=== PATIENT | male | born 1945 | race Caucasian/White ===

== ENCOUNTER → 2017-04-07 10:43 | Outpatient (CLI) | payer MEDICARE, BC, OTHER, SELFPAY ==
--- NOTE | 2017-04-07 10:50 | XR_ITS ---
XR knee RT 2V HISTORY: Knee pain ITS.REASON: Pre op exam ORDERING PHYSICIAN: Sheng Oneil MD PATIENT AGE: 72 years COMPARISON: 11/25/2006 FINDINGS: There are severe osteoarthritic changes of the medial compartment with moderate osteoarthritic changes of the lateral compartment and patellofemoral joint. Osteophytes are present involving all 3 compartments and at the tibial spines and intercondylar region of the distal femur. There is mild right lateral tibial subluxation of 7 mm. There is a small suprapatellar effusion. An oval calcific density is present at the tibial tuberosity consistent with ununited ossification center. IMPRESSION: Moderate to severe osteoarthritic change which has progressed compared to 11/25/2006 with small knee joint effusion
== END ==
PROVIDERS: PCP Internal Medicine; Visit Provider Orthopaedic Surgery
DX: M17.11 Unilateral primary osteoarthritis, right knee (principal)
CPT/HCPCS: 73560

== ENCOUNTER → 2017-04-20 12:35 | Outpatient (CLI) | payer MEDICARE, BC, OTHER, SELFPAY ==
--- NOTE | 2017-04-20 12:39 | XR_ITS ---
XR chest 2V HISTORY: Shortness of breath on exertion ITS.REASON: Preop ORDERING PHYSICIAN: Sheng Oneil MD PATIENT AGE: 72 years COMPARISON: None available FINDINGS: The cardiomediastinal silhouette and pulmonary vascularity are within normal limits. The lungs are clear without infiltrates, suspicious nodules, or pleural effusions. No acute bony abnormalities. Osteophytosis noted of the thoracic spine. There is an oblique lucency along the mid to anterior aspect of what appears to represent the T7 vertebral body. This however does project beyond the endplate and is consistent with a mock line IMPRESSION: No acute finding
--- NOTE | 2017-04-20 12:39 | XR_ITS ---
XR tibia fibula RT 2V CLINICAL INDICATION: Pain, osteoarthritis ORDERING PHYSICIAN: Sheng Oneil MD PATIENT AGE: 72 years COMPARISON: 04/07/2017 FINDINGS: Osteoarthritic changes are once again noted involving the medial compartment and patellofemoral joint with small suprapatellar effusion. Ununited ossification center is present at the tibial tuberosity. The mid and distal aspect of the tibia and fibula have an unremarkable appearance. The ankle has an unremarkable appearance. IMPRESSION: Osteoarthritis of the right knee with knee joint effusion otherwise negative right tibia and fibula.
== END ==
PROVIDERS: PCP Internal Medicine; Visit Provider Orthopaedic Surgery
DX: Z01.818 Encounter for other preprocedural examination (principal)
CPT/HCPCS: 71046; 73590

== ENCOUNTER → 2017-04-23 07:48 | Outpatient (CLI) | payer MEDICARE, BC, OTHER, SELFPAY | PROVIDERS: PCP Orthopaedic Surgery; Visit Provider Orthopaedic Surgery | DX: Z01.812 Encounter for preprocedural laboratory examination (principal); M17.11 Unilateral primary osteoarthritis, right knee | CPT/HCPCS: 36415; 86850 ==

== ENCOUNTER 2017-04-25 05:59 | Inpatient (IN) | payer MEDICARE, BC, OTHER, SELFPAY ==
[2017-04-20 16:28] VITALS: BMI 43.7
[2017-04-25] VITALS (27 sets, daily range): BP systolic 99–176; BP diastolic 46–96; PULSE 71–90; RESP 12–20; TEMP 36.3–43; O2SAT 92–99; BMI 44.8
--- NOTE | 2017-04-25 06:33 | HMH.ANESCL ---
[facility] Anesthesia Checklist - Structural Data Admitted From: Home Planned Operative Procedure/s: total knee Consent for Planned Operative Procedure(s) Verified: Yes Verified Documents: Surgical Consent - Airway Assessment C-Spine Mobility Assessed: Yes TMJ Mobility Assessed: Yes Dentition: Good Dentition - Neurological Assessment Level of Consciousness: Awake, Alert - Anesthesia Plan Anesthesia Risk discussed: Yes Anesthesia Plan: Verified ASA Class: II Anesthesia Type: General [facility] Anesthesia HX I have reviewed the patient's past medical history: Yes Medical History: Reports:: Hypertension Denies:: Cancer, Diabetes Mellitus Type 1, Diabetes Mellitus Type 2, MRSA Other Medical History: Reports: Arthritis Laterality Cases: Bilateral: Other Other Surgeries: Yes: Appendectomy, Hernia Repair Amputation: No Fractures: No *Family Hx:: Cancer, Hypertension
--- NOTE | 2017-04-25 08:51 | PC.NURSE ---
#18F coude inserted r/t pt's age
--- NOTE | 2017-04-25 11:23 | HMH.ANESI ---
[facility] Anesthesia Record Part I Intake, IV Amount: 2,800 Estimated blood loss (mL): 10 Urine output (mL): 750 Blood Pressure: 144/85 SaO2: 92 Pulse Rate: 86 Respiratory Rate: 12 Temperature: 97.6 F Patient is:: Awake, Stable Stable to PACU at:: 11:20
--- NOTE | 2017-04-25 11:24 | P.PN_ITS ---
[facility] Anesthesia Record Part II Discharge Time: 11:50 Destination: floor PACU nurse assessment reviewed?: Yes Patient Condition:: Good Anesthesia Complications:: None
--- NOTE | 2017-04-25 11:50 | XR_ITS ---
XR knee RT 2V COMPARISON: Right knee 04/20/2017 HISTORY: Post total knee surgery TECHNIQUE: Portable AP and crosstable lateral views FINDINGS: The femoral prosthesis is in good alignment and apposition to the tibial plateau prosthesis. The metallic ring is seen along the undersurface of the patella. There is mottled appearance of the soft tissues of the thigh consistent with the recent surgery. IMPRESSION: Satisfactory appearance of postop total knee prosthesis
--- NOTE | 2017-04-25 12:47 | HMH.OPNOTE ---
Date of procedure: 04/25/17 Pre-op Diagnosis:: #1 right knee osteoarthritis, tricompartmental #2 obesity #3 intratendinous ossicle distal patella tendon Post-op Diagnosis:: Same Procedure performed:: Right total knee arthroplasty, cruciate retaining IMPLANTS--Wilson nephew legionnaire system with cruciate retaining size 7 cemented femoral component, size 7 tibial baseplate, cemented, 11 mm thick cruciate retaining polyethylene tibial insert, and 32 mm central peg polyethylene patella button, cemented Surgeon:: Sheng Oneil MD Strategic Consultant(s):: Dr. Tinajero MANAGER MATERIALS MANAGEMENT:: Martin Sherman Anesthesia: GETA, regional Estimated blood loss (mL): 10 Operative findings:: Tricompartmental osteoarthritis was present. Bone quality was satisfactory. Prominent osteophytes present throughout the knee. Intratendinous ossicle present distal patella tendon, knee range of motion limited with pre-existing flexion contracture of approximately 8? Operative note:: The patient was taken to the operating room and an appropriate time out conducted. Preoperative Ancef and tranexamic acid was given. The right knee was placed in a well leg mcintyre after appropriate prepping and draping had been accomplished. We then sealed the operative field with Ioban. A midline incision was made and electrocautery used for hemostasis. A medial parapatellar approach was utilized. A new marking pen was used to osvaldo the extensor mechanism for later closure prior to this parapatellar incision. A portion of the fat pad was resected to allow visualization and the patella gently everted. We control this very strictly due to the presence of a pre-existing ossicle and to avoid a bolusing the tendon from the tubercle. We then used a rongeur to remove osteophytes and electrocautery to remove the ACL and paxton. Femoral entry point on the medial aspect of the notch approximately 1 cm anterior was created and an entry drill placed in the intramedullary canal. We irrigated the canal and then placed the intramedullary delia for alignment. We resected an additional 2 mm of distal femur due to the presence of a pre-existing flexion contracture. We checked the trueness of the cut. We then sized this as a size 7 distal femur. We placed the cutting block after we had checked appropriate external rotation. The jagged been set at 5? valgus 3? external rotation and Whitesides line and epicondylar axis agreed with this. Protected soft tissues with appropriate retractors while we made the anterior posterior and both chamfer cuts. Again we check for appropriate weakness of the cuts and found in satisfactory. We then resected additional meniscal cartilage and turned attention to the tibia. The extra medullary jig was applied between the tibial spines proximally and the alignment delia centered over the distal tibia distally. We ensured that it was directed toward the second ray and also passed through the distal tibia reviewed in the AP fashion. This was confirmed by both the surgeon, the assistant professor of marine biology surgeon, and the project production engineer. We then pinned the cutting guide in position so that would resect approximately 3 mm of bone from the proximal tibia. We confirmed alignment using a drop delia technique after the cutting jig had been pinned and then carefully resected the proximal tibia. We elevated the proximal tibia with an osteotome, grasped it with a Adam clamp, and used electrocautery to remove it while retaining the posterior cruciate ligament. We found the PCL to be in good condition. After the cuts, the collateral ligaments and the popliteus were undamaged. Additional meniscal tissue was resected and we removed osteophytes posteriorly. We check for appropriate trueness of the tibial plateau cut and found it satisfactory. We sized the tibia at a size 7. We placed a size 7 femur slightly lateralized followed by a size 7 tibia with first a 9 and then an 11 mm or insert. We externally rotated the tibia slightl
--- NOTE | 2017-04-25 12:51 | P.OP_ITS ---
Date of procedure: 04/25/17 Pre-op Diagnosis:: #1 right knee osteoarthritis, tricompartmental #2 obesity #3 intratendinous ossicle distal patella tendon Post-op Diagnosis:: Same Procedure performed:: Right total knee arthroplasty, cruciate retaining IMPLANTS--Wilson nephew legionnaire system with cruciate retaining size 7 cemented femoral component, size 7 tibial baseplate, cemented, 11 mm thick cruciate retaining polyethylene tibial insert, and 32 mm central peg polyethylene patella button, cemented Surgeon:: Sheng Oneil MD Crayon Grader(s):: Dr. Tinajero TRAIL MAINTENANCE WORKER:: Martin Sherman Anesthesia: GETA, regional Estimated blood loss (mL): 10 Operative findings:: Tricompartmental osteoarthritis was present. Bone quality was satisfactory. Prominent osteophytes present throughout the knee. Intratendinous ossicle present distal patella tendon, knee range of motion limited with pre-existing flexion contracture of approximately 8? Operative note:: The patient was taken to the operating room and an appropriate time out conducted. Preoperative Ancef and tranexamic acid was given. The right knee was placed in a well leg mcintyre after appropriate prepping and draping had been accomplished. We then sealed the operative field with Ioban. A midline incision was made and electrocautery used for hemostasis. A medial parapatellar approach was utilized. A new marking pen was used to osvaldo the extensor mechanism for later closure prior to this parapatellar incision. A portion of the fat pad was resected to allow visualization and the patella gently everted. We control this very strictly due to the presence of a pre- existing ossicle and to avoid a bolusing the tendon from the tubercle. We then used a rongeur to remove osteophytes and electrocautery to remove the ACL and paxton. Femoral entry point on the medial aspect of the notch approximately 1 cm anterior was created and an entry drill placed in the intramedullary canal. We irrigated the canal and then placed the intramedullary delia for alignment. We resected an additional 2 mm of distal femur due to the presence of a pre- existing flexion contracture. We checked the trueness of the cut. We then sized this as a size 7 distal femur. We placed the cutting block after we had checked appropriate external rotation. The jagged been set at 5? valgus 3? external rotation and Whitesides line and epicondylar axis agreed with this. Protected soft tissues with appropriate retractors while we made the anterior posterior and both chamfer cuts. Again we check for appropriate weakness of the cuts and found in satisfactory. We then resected additional meniscal cartilage and turned attention to the tibia. The extra medullary jig was applied between the tibial spines proximally and the alignment delia centered over the distal tibia distally. We ensured that it was directed toward the second ray and also passed through the distal tibia reviewed in the AP fashion. This was confirmed by both the surgeon, the assistant federal public defender surgeon, and the product steward. We then pinned the cutting guide in position so that would resect approximately 3 mm of bone from the proximal tibia. We confirmed alignment using a drop delia technique after the cutting jig had been pinned and then carefully resected the proximal tibia. We elevated the proximal tibia with an osteotome, grasped it with a Adam clamp, and used electrocautery to remove it while retaining the posterior cruciate ligament. We found the PCL to be in good condition. After the cuts, the collateral ligaments and the popliteus were undamaged. Additional meniscal tissue was resected and we removed osteophytes posteriorly. We check for appropriate truen
--- NOTE | 2017-04-25 12:59 | PC.NURSE ---
1220 - Pt arrived to room 206 via bed accompanied by PACU nurses. Pt is A&Ox4. VSS. Afebrile. Heart rate reg. Lungs CTA and diminished throughout. O2 @ 2LPM via NC intact. Abd soft round and non-tender /c hypoactive Bowel Sounds x4 quads. Polar tessa in place to (R) knee. Heel elevated on pillow. SCD in place to (L) LE. Bilat pedal pulses present and equal bilat. IV (R) hand intact infusing LR @ 25ml/hr /s difficulty. Pt reports pain 5/10 to (R) thigh region stating it feels like a destiney horse . 1238 - Morphine PROPERTY ASSESSMENT MONITOR set up and instructed pt on use of PROPERTY ASSESSMENT MONITOR pump. 1300 - Pt reports pain is not there. Pt has placed cpap on as he reports he is unable to sleep without it. Instructed pt on need to return to oxygen via NC once awake and off cpap. Pt verbalizes understanding. Bed in low position, call conti within reach, PROPERTY ASSESSMENT MONITOR trigger in reach. Will continue to monitor.
--- NOTE | 2017-04-25 13:52 | PC.NURSE ---
1130-Pt eating ice chips w/out difficulty.
--- NOTE | 2017-04-25 13:55 | PC.NURSE ---
1135-Polar pack applied to right knee as ordered per MD. Pt reports pain/discomfort to right knee and back, assisted pt with repositioning as tolerated and medicating for pain per MAR. Pt denies nausea w/ice chips. IPC on and going to LLE. Pt stable.
--- NOTE | 2017-04-25 13:57 | PC.NURSE ---
1122-oral airway removed at this time, o2 @ 3l/nc in place, sats stable
--- NOTE | 2017-04-25 14:01 | PC.NURSE ---
1150-pt attempted to void per urinal, unsucessful
--- NOTE | 2017-04-25 14:04 | PC.NURSE ---
Addendum entered by Ashlee Duncan RN 04/25/17 14:04: 1200-detailed report called to CADEN Anderson Original Note: 1155-radiology at bedside
--- NOTE | 2017-04-25 14:06 | PC.NURSE ---
1205-Pt transported to 2nd floor room 206 via hospital bed w/rails up per. CADEN Franklin & CADEN Sanchez. Pt left in care of CADEN Anderson w/bed locked in lowest position. VSS. Family at bedside. Pt continues to eat ice chips w/out difficulty. Pt stable.
[2017-04-25 18:41] LABS: Microscopic,Cath URINE MICROSCOPIC (MICROSCOPIC)
[2017-04-25 18:43] LABS: Appearance,Urine/Cath CLEAR (Clear); Bilirubin,Cath Negative (Negative); Blood, Urine/Cath Negative (Negative); Color,Urine/Cath YELLOW (Yellow); Glucose,Urine/Cath (UA) Negative (Negative); Ketones,Urine/Cath Negative (Negative); Leukocyte Esterase,Cath Negative (Negative); Nitrate,Cath Negative (Negative); PH,Urine/Cath 6.5 (5.0-8.5); Protein,Urine/Cath Negative (Negative); Urobilinogen,Cath 0.2 EU/dl (0.2)
--- NOTE | 2017-04-25 19:12 | PC.NURSE ---
report given to vicky shah
[2017-04-25 19:18] LABS: WBC,Urine/Cath Occasional #/hpf (0-3)
--- NOTE | 2017-04-25 19:38 | PC.NURSE ---
Morphine RUBBER PRINTING MACHINE OPERATOR pump cleared - 14 mg given. 16mg remain in syringe.
--- NOTE | 2017-04-25 19:47 | PC.NURSE ---
IV intake documented for Morphine DOCK OPERATOR
[2017-04-26] VITALS (10 sets, daily range): BP systolic 127–180; BP diastolic 49–84; PULSE 70–98; RESP 18–20; TEMP 36.1–37.7; O2SAT 93–99
--- NOTE | 2017-04-26 04:26 | PC.NURSE ---
Addendum entered by Helena Bowen RN 04/26/17 05:45: correction: patient has has 15.8mg of morphine, but only rates pain no higher than 5/10. Also has had norco 2 times. Original Note: Patient laying in bed resting at this time. Has rest most of shift. Started having some pain commercial singer when block wore off. Highest pain has been rated is a 4/10. Educated patient on how morphine and norco work. Has had [place] 2 x, morphine pump 2 times. Has been up on side of bed 2 times this shift. Tolerated well. Polar pack is still on right knee, ice and cold water has been replaced. has kept folded blanket under heel. Patient was doing some ROM while in bed. Tolerated well. Oxygen 2L NC has been on all shift to promote wound healing. Lungs are clear, resp even and non labored. have encouraged deep breathing exercises. Right leg has some non pitting edema noted. Iv is patent, Denies needs. Bed locked in low position, side rails up x 2, call light within reach. Will continue to monitor.
--- NOTE | 2017-04-26 07:24 | P.CONPHA_ITS ---
[facility] Pharmacy VTE Monitoring - Patient Demographics Admission date: 04/25/17 Report Date: 04/26/17 Time: 07:24 Allergies/Adverse Reactions: Patient Allergies No Known Allergies Allergy (Verified 04/20/17 14:01) Height: 1.78 m Weight: 146.329 kg - VTE Risk Was VTE Risk Assessment Performed: Yes VTE Score: 5 VTE Risk Level: Low Risk - Prophylaxis VTE Prophylaxis Ordered?: Yes Types of VTE Prophylaxis: IPCS Thigh High Location of Applied Device: Left Leg - VTE Diagnosis Confirmed Treatment or plan recommended: Continue Current Treatment
[2017-04-26 07:46] LABS: Basophils % 0.1 % (0.1-2.0); Eosinophils % 0.1 % (0.1-12.0); Hematocrit 39.9 % (42.0-52.0); Hemoglobin 13.1 g/dL (14.1-18.0); Lymphocytes % 12.9 K/mm3 (10-50); Mean Corpuscular HGB Conc 32.9 g/dL (31.8-35.4); Mean Corpuscular Hemoglobin 30.3 pg (27.0-31.2); Mean Corpuscular Volume 92.1 fl (80-94); Mean Platelet Volume 7.5 fl (7.4-10.4); Monocytes # 1.7 K/mm3 (0.1-1.0); Monocytes % 10.6 % (1.7-9.3); Neutrophils # 12.1 K/mm3 (1.8-7.8); Neutrophils % 76.3 % (37.0-80.0); Platelet Count 250 K/mm3 (142-424); Red Blood Count 4.33 M/mm3 (4.60-6.20); Red Cell Distribution Width 13.2 % (11.5-17.5); White Blood Count 15.8 K/mm3 (4.8-10.8)
[2017-04-26 08:05] LABS: MANUAL DIFFERENTIAL MANUAL DIFFERENTIAL (MANUAL DIFF)
[2017-04-26 08:16] LABS: Anion Gap 12.7 mEq/L (5-15); Blood Urea Nitrogen 18 mg/dL (7-18); Carbon Dioxide 27 mmol/L (21.0-32.0); Chloride 102 mmol/L (98-107); Creatinine Clearance Estimated 69 mL/min (0-300); Creatinine,Serum 1.02 mg/dL (0.70-1.30); Estimated Glomerular Filt Rate 72 ml/min (>60); GFR (African American) 87 ML/MIN (>60); Glucose 124 mg/dL (74-106); Potassium 3.7 mmoL/L (3.5-5.1); Sodium 138 mmol/L (136-145)
[2017-04-26 10:59] LABS: Lymphocytes % 4 % (10-50); Monocytes % 14 % (2-9); Neutrophils % 82 % (42-76); Total Cells Counted 100
[2017-04-26 11:00] LABS: Platelet Estimate Clumped; RBC Morphology Normal
--- NOTE | 2017-04-26 12:59 | SW/DCPLANNER ---
Spoke with patient regarding discharge plans....patient stated that he intends on going home with his . Patient stated that he is very active and feels that he can discharge home with home health once he is ready for discharge. CM will follow patient during his stay and assist with any orders/needs at time of discharge.
--- NOTE | 2017-04-26 13:04 | HMH.ORTHPN ---
Subjective Date: 04/26/17 Time: 09:15 Principal diagnosis: Status post right total knee arthroplasty Interval history: Postop day #1. Patient noted the block to metabolize last night. He is controlled on the MONUMENT LETTERER at this point. Adequate pain control noted. Oral Lortab ordered as well. Dressing clean and dry. Sensate to light touch both feet. No calf tenderness or edema. Negative Homans signs and negative palpable venous cords. No evidence DVT. PN: Obj Ex Vital signs: Temp Pulse Resp BP Pulse Ox 99.9 F H 79 18 127/49 93 L 04/26/17 11:36 04/26/17 11:36 04/26/17 11:36 04/26/17 11:36 04/26/17 11:36 - Urinary Catheter Management Hubbard Cath placed during this visit: yes Urethral indwelling: No Insertion date: 04/25/17 Insertion time: 07:34 Progress Note: A&P Assessment and Plan for All Diagnoses:: ASSESSMENT...... able postop day #1 status post right total knee arthroplasty PLAN...... relation with physical therapy. ASA 325 mg once daily for prophylaxis DVT. I have instructed the patient to move ankles and toes every hour to help with DVT prophylaxis as well. We discussed aspirin versus Lovenox and Coumadin and other oral prophylactic measures. He agrees that aspirin would be the best choice for him. We will attempt to transition to oral pain medications. Will ask care management see the patient.
--- NOTE | 2017-04-26 13:34 | P.PN_ITS ---
Subjective Date: 04/26/17 Time: 09:15 Principal diagnosis: Status post right total knee arthroplasty Interval history: Postop day #1. Patient noted the block to metabolize last night. He is controlled on the MECHANICAL INTEGRITY SPECIALIST at this point. Adequate pain control noted. Oral Lortab ordered as well. Dressing clean and dry. Sensate to light touch both feet. No calf tenderness or edema. Negative Homans signs and negative palpable venous cords. No evidence DVT. PN: Obj Ex Vital signs: Temp Pulse Resp BP Pulse Ox 99.9 F H 79 18 127/49 93 L 04/26/17 11:36 04/26/17 11:36 04/26/17 11:36 04/26/17 11:36 04/26/17 11:36 - Urinary Catheter Management Hubbard Cath placed during this visit: yes Urethral indwelling: No Insertion date: 04/25/17 Insertion time: 07:34 Progress Note: A&P Assessment and Plan for All Diagnoses:: ASSESSMENT...... able postop day #1 status post right total knee arthroplasty PLAN...... relation with physical therapy. ASA 325 mg once daily for prophylaxis DVT. I have instructed the patient to move ankles and toes every hour to help with DVT prophylaxis as well. We discussed aspirin versus Lovenox and Coumadin and other oral prophylactic measures. He agrees that aspirin would be the best choice for him. We will attempt to transition to oral pain medications. Will ask care management see the patient.
--- NOTE | 2017-04-26 15:30 | HMH.PTEV ---
Physical Therapy Evaluation Rehab PT IP Evaluation Start: 04/26/17 15:25 Freq: ONCE Status: Complete Protocol: Document 04/26/17 15:25 PWRA (Rec: 04/26/17 15:30 PWRA [id number]) Subjective/History History History This is the initial PHysical Therapy evaluation for Nik Cortez. Pt is a 72 y/o male admitted to [facility] s/p R TKA. referred to PT for care Subjective Subjective Pt reports soreness in R knee Rehab PT IP Eval Objective Appearance Patient Behavior Appropriate Patient Orientation Person Place Time Name Birthday Patient Baseline Difficulty following instructions none Speech Pattern Clear Ambulation Patient Able to Ambulate Yes Ambulation Observation IP General Gait Pattern Observation Antalgic Gait Ambulation Distance (feet) 75 Ambulation Assistive Device Rolling Walker Balance Ability to Arise Able, uses arms to help Sitting Balance Steady, safe Standing Balance Steady, wide stance Dynamic Sitting Balance Ability Normal Dynamic Standing Balance Ability Good Transfers Bed Transfer Ability Supervision/Stand by Chair Transfer Ability Supervision/Stand by Sit to Stand Bed Transfer Ability Supervision/Stand by Sit to Stand Chair Transfer Ability Supervision/Stand by ROM All Extremities PT ROM Status WFL Abnormal ROM Comment Knee limitations 2ndary to pain and wrap Rehab PT IP prob,goals,plan Problems Date of Evaluation: 04/26/17 PT IP Problems Gait Self care Rehab Potential Rehab Potential Good Equipment Needs Assistive Devices Rolling / Wheeled Walker Plan PT Intervention Plan Transfers Gait Therapeutic Exercise PT Plan Frequency BID Duration LOS Discharge Goals Bed Transfer Ability Supervision/Stand by Sit to Stand Chair Transfer Ability Supervision/Stand by Ambulation Assistive Device Rolling Walker Ambulation Distance (feet) 100 Discharge Plan PT Discharge Plan pt to return home w/ hhpt G -code Required Yes Eval Complexity Eval Charge Codes 14219 - Low Complexity G Codes PT Current Status Mobility PT Current Status Modifier CJ-At least 20% but less than
[2017-04-27] VITALS (15 sets, daily range): BP systolic 115–155; BP diastolic 63–85; PULSE 75–110; RESP 18–22; TEMP 36.4–37.6; O2SAT 91–98; BMI 46.1
--- NOTE | 2017-04-27 05:34 | PC.NURSE ---
Pt required a pain pill for additional relief, only requested one, did not want two. DRIER AND GRINDER TENDER in use, IV fluids infusing well. Right knee dressing remains C/D/I with polar pack in place. Toes with <3 sec and pulses palpable. Using I/S quite often, <100 degree temp tonight. Pt rings appropriately and remained safe this shift.
--- NOTE | 2017-04-27 07:44 | PC.NURSE ---
Shift report given to Malinda Deleon RN leaving pt safe and stable.
--- NOTE | 2017-04-27 12:59 | HMH.ORTHPN ---
Subjective Date: 04/27/17 Time: 11:30 Principal diagnosis: Status post right total knee arthroplasty Interval history: Patient has been up with physical therapy moving approximately 75 feet. He notes minimal pain. He used the METAL SPRAYER PRODUCTION one time last night. Requests removal of IV. Dressing is changed. It is clean and dry absolutely no drainage noted. Minimal edema skin folds present. Suture line intact. Sensate to light touch in the foot. No calf tenderness. No evident complications. PN: Obj Ex Vital signs: Temp Pulse Resp BP Pulse Ox 98.1 F 107 H 20 118/73 93 L 04/27/17 11:44 04/27/17 11:44 04/27/17 11:44 04/27/17 11:44 04/27/17 11:44 - Urinary Catheter Management Hubbard Cath placed during this visit: yes Urethral indwelling: No Insertion date: 04/25/17 Insertion time: 07:34 Progress Note: A&P Assessment and Plan for All Diagnoses:: Anticipate discharge tomorrow. We have reemphasized extension and have very important it is as the patient had a pre-existing flexion contracture. Although his range of motion on the OR table is 0 to approximately 120?, I have reemphasized how very difficult it is for patients to maintain this range of motion. Patient understands and is willing to put forth the effort to regain his motion. Care management is seen the patient will offer recommendations for home therapy
--- NOTE | 2017-04-27 13:03 | P.PN_ITS ---
Subjective Date: 04/27/17 Time: 11:30 Principal diagnosis: Status post right total knee arthroplasty Interval history: Patient has been up with physical therapy moving approximately 75 feet. He notes minimal pain. He used the NON DESTRUCTIVE EVALUATION SPECIALIST one time last night. Requests removal of IV. Dressing is changed. It is clean and dry absolutely no drainage noted. Minimal edema skin folds present. Suture line intact. Sensate to light touch in the foot. No calf tenderness. No evident complications. PN: Obj Ex Vital signs: Temp Pulse Resp BP Pulse Ox 98.1 F 107 H 20 118/73 93 L 04/27/17 11:44 04/27/17 11:44 04/27/17 11:44 04/27/17 11:44 04/27/17 11:44 - Urinary Catheter Management Hubbard Cath placed during this visit: yes Urethral indwelling: No Insertion date: 04/25/17 Insertion time: 07:34 Progress Note: A&P Assessment and Plan for All Diagnoses:: Anticipate discharge tomorrow. We have reemphasized extension and have very important it is as the patient had a pre-existing flexion contracture. Although his range of motion on the OR table is 0 to approximately 120?, I have reemphasized how very difficult it is for patients to maintain this range of motion. Patient understands and is willing to put forth the effort to regain his motion. Care management is seen the patient will offer recommendations for home therapy
--- NOTE | 2017-04-27 13:45 | SW/DCPLANNER ---
Followed up with patient this afternoon regarding discharge plans. Patient has stated that MD has mentioned discharge tomorrow. Patient does NOT have a preference on a home health agency for when he is ready for discharge. I will set patient up with home health once discharge date is known and I have informed patient that home health will not visit patient day of discharge but they will visit day after discharge. Patient and agree with plan. I will follow up with patient in the AM.
--- NOTE | 2017-04-27 13:55 | SUR.OPER ---
Hubbard catheter removed just after last sterile dressing applied, at 11:14. CADEN Cedeno
--- NOTE | 2017-04-27 18:20 | PC.NURSE ---
72 YEAR OLD MALE PRESENTED TO THE HOSPITAL ON 04/25/17 FOR A RIGHT TOTAL KNEE REPLACEMENT. HE HAS DONE WELL TODAY AND HAS AMBULATED WITH PHYSICAL THERAPY, HE TOLERATED THIS VERY WELL AND HAS SAT UP IN THE CHAIR MOST OF THE DAY. HE HAS HAD FAMILY AT BEDSIDE. HE COMPLAINED OF PAIN X 2 AND WAS MEDICATED PER ORDER. HE NOW HAS A SALINE LOCK AND FLUIDS AND SUPERVISOR METAL FURNITURE FABRICATION PUMP HAS BEEN HELD PER DR AMBROCIO AT THIS TIME. HE CONTINUES TO USE THE POLAR PACK TO HIS RIGHT KNEE AND HAS A MODERATE AMOUNT OF SWELLING. HE HAS POSITIVE PULSES TO BILATERAL LOWER EXTREMITIES. DRESSING IS CLEAN DRY AND INTACT TO HIS RIGHT KNEE. HE PLANS TO DISCHARGE HOME TOMORROW WITH HOME HEALTH TO CONTINUE HIS THERAPY. HE HAS USED HIS INCENTIVE SPIROMETER HOURLY. WILL WE CONTINUE TO MONITOR. CARY ACUÑA, MSN, RN
--- NOTE | 2017-04-27 19:19 | PC.NURSE ---
report given to tanvir
--- NOTE | 2017-04-28 03:42 | PC.NURSE ---
He is a&Ox3. Lung sounds CTA. Using incentive spirometer as instruction. He reported that he has not had a BM since Tuesday but stated his appetite is starting to increased and that he is passing gas. 1+ Edema RLE. Receiving PO pain medications. RLE dressing intact. Polar pack in place.
[2017-04-28 04:00] VITALS: BP 133/80; PULSE 86; RESP 20; TEMP 36.7; O2SAT 97
--- NOTE | 2017-04-28 07:32 | PC.NURSE ---
REPORT GIVEN TO Shay JEONG W/C
[2017-04-28 08:00] VITALS: BP 142/70; PULSE 89; RESP 18; TEMP 37.2; O2SAT 98
--- NOTE | 2017-04-28 11:51 | HMH.DCSUM ---
General - General Admission date: 04/25/17 Discharge date: 04/28/17 HPI HPI: 72-year-old gentleman with right knee end-stage osteoarthritis admitted for right total knee arthroplasty. He underwent a cruciate retaining right knee arthroplasty using [facility]. Cemented femur cemented tibial baseplate and high flexion tibial insert millimeters central peg constrained patella button. Femur is a size 7 cruciate retaining, tibial baseplate size 7, polyethylene for the baseplate is 11 mm thick Hospital Course Hospital Course: Patient underwent an uneventful postoperative course. He was initially treated using a morphine CUBE MACHINE TENDER and progressed to oral pain medicines by time of discharge. He was able to ambulate with assistance of a walker. Physical therapy saw him there for times and also prior to discharge. We have emphasized elevation and LUKASZ hose [patient issued LUKASZ hose by Jerrica prior to discharge and shown how to don and doff the LUKASZ hose.] Should progress to regular diet without difficulty or problems. At time of discharge, the wound was clean and dry with absolutely no drainage redness erythema or induration. Mild edema of the right lower extremity but no Homans negative calf tenderness venous cords not palpable. Objective Vital signs: Temp Pulse Resp BP Pulse Ox 98.9 F 89 18 142/70 98 04/28/17 08:00 04/28/17 08:00 04/28/17 08:00 04/28/17 08:00 04/28/17 08:00 Discharge Plan - Patient Discharge Instructions Additional Instructions: Please continue to take your usual home medications except for your 81 mg of aspirin. STOP TAKING 81 MG OF ASPIRIN.. Instead, begin taking aspirin 325 mg 1 tablet daily beginning Tuesday, 29 April 2017. Continue to take the 305 mg dose of aspirin for 14 days. After you have taken all 14 tablets, you may resume taking your 81 mg of aspirin daily You may use the Lortab 5/325 as directed for pain. Patient Instructions: Knee Replacement - Follow up Plan Home Medications: Home Medications Medication Instructions Recorded Confirmed Type aspirin 81 mg tablet,delayed 81 mg PO DAILY 03/10/17 04/26/17 History release ibuprofen 200 mg capsule 400 mg PO Q4-6H PRN 03/10/17 04/25/17 History gabapentin 300 mg capsule 300 mg PO TID 04/07/17 04/25/17 History lisinopril 10 mg tablet 10 mg PO BID tab 04/07/17 04/25/17 History Prescriptions/Medication Reconciliation: New Aspirin/Calcium Carbonate/Mag [Aspirin Buffered 325 mg Tab] 325 mg PO DAILY #14 tab No Action ibuprofen 200 mg capsule 400 mg PO Q4-6H PRN PRN Reason: PAIN gabapentin 300 mg capsule 300 mg PO TID aspirin 81 mg tablet,delayed release 81 mg PO DAILY lisinopril 10 mg tablet 10 mg PO BID tab
--- NOTE | 2017-04-28 11:57 | P.DS_ITS ---
General - General Admission date: 04/25/17 Discharge date: 04/28/17 HPI HPI: 72-year-old gentleman with right knee end-stage osteoarthritis admitted for right total knee arthroplasty. He underwent a cruciate retaining right knee arthroplasty using [facility]. Cemented femur cemented tibial baseplate and high flexion tibial insert millimeters central peg constrained patella button. Femur is a size 7 cruciate retaining, tibial baseplate size 7, polyethylene for the baseplate is 11 mm thick Hospital Course Hospital Course: Patient underwent an uneventful postoperative course. He was initially treated using a morphine RETURN CHECKER and progressed to oral pain medicines by time of discharge. He was able to ambulate with assistance of a walker. Physical therapy saw him there for times and also prior to discharge. We have emphasized elevation and LUKASZ hose [patient issued LUKASZ hose by Jerrica prior to discharge and shown how to don and doff the LUKASZ hose.] Should progress to regular diet without difficulty or problems. At time of discharge, the wound was clean and dry with absolutely no drainage redness erythema or induration. Mild edema of the right lower extremity but no Homans negative calf tenderness venous cords not palpable. Objective Vital signs: Temp Pulse Resp BP Pulse Ox 98.9 F 89 18 142/70 98 04/28/17 08:00 04/28/17 08:00 04/28/17 08:00 04/28/17 08:00 04/28/17 08:00 Discharge Plan - Patient Discharge Instructions Additional Instructions: Please continue to take your usual home medications except for your 81 mg of aspirin. STOP TAKING 81 MG OF ASPIRIN.. Instead, begin taking aspirin 325 mg 1 tablet daily beginning Tuesday, 29 April 2017. Continue to take the 305 mg dose of aspirin for 14 days. After you have taken all 14 tablets, you may resume taking your 81 mg of aspirin daily You may use the Lortab 5/325 as directed for pain. Patient Instructions: Knee Replacement - Follow up Plan Home Medications: Home Medications Medication Instructions Recorded Confirmed Type aspirin 81 mg tablet,delayed 81 mg PO DAILY 03/10/17 04/26/17 History release ibuprofen 200 mg capsule 400 mg PO Q4-6H PRN 03/10/17 04/25/17 History gabapentin 300 mg capsule 300 mg PO TID 04/07/17 04/25/17 History lisinopril 10 mg tablet 10 mg PO BID tab 04/07/17 04/25/17 History Prescriptions/Medication Reconciliation: New Aspirin/Calcium Carbonate/Mag [Aspirin Buffered 325 mg Tab] 325 mg PO DAILY # 14 tab No Action ibuprofen 200 mg capsule 400 mg PO Q4-6H PRN PRN Reason: PAIN gabapentin 300 mg capsule 300 mg PO TID aspirin 81 mg tablet,delayed release 81 mg PO DAILY lisinopril 10 mg tablet 10 mg PO BID tab
--- NOTE | 2017-04-28 13:52 | SW/DCPLANNER ---
RECEIVED REFERRAL FOR THIS PATIENT FOR PT SERVICES WITH HOME HEALTH.....PATIENT HAD A KNEE REPLACEMENT AND DISCHARGED TO HOME TODAY...I SENT REFERRAL TO [facility] [place] THAT [facility].. I HAVE ASKED [facility] TO CONTACT PATIENT FOR SERVICES TO START IN THE AM...
--- NOTE | 2017-04-28 15:01 | PC.NURSE ---
1300 PATIENT EDUCATION GIVEN TO THIS PATIENT AND HIS . WRITTEN ON HIS INSTRUCTION SHEET STOP TAKING 81 MG ASPIRIN BEGIN TAKING 325MG ASPIRIN 1 TABLET DAILY BEGINNING Tuesday04/29/17, FOR APPROXIMATELY 14 DAYS, AFTER 14 DAYS BEGIN TAKING ASPIRIN 81MG DAILY. PATIENT WAS EDUCATED ON THIS AND HE AND HIS VERBALIZED UNDERSTANDING. CARY ACUÑA, MSN, RN
== END 2017-04-28 13:30 | disposition home health service (06) | DRG 470 ==
PROVIDERS: Admitting Provider Orthopaedic Surgery; Family Provider Family Medicine; PCP Orthopaedic Surgery; Visit Provider Orthopaedic Surgery
PROC: 0SRC0J9 Replacement of Right Knee Joint with Synthetic Substitute, Cemented, Open Approach (ICD-10-PCS; CPT 27447; principal; 2017-04-25 07:30)
DX: M17.11 Unilateral primary osteoarthritis, right knee (principal); I10 Essential (primary) hypertension
CPT/HCPCS: 27447; 36415; 73560; 80048; 81001; 85007; 85025; 86850; 94761; 96374; 97110; 97116; 97161; C1765; C1776; J0330; J2405

== ENCOUNTER → 2017-05-03 09:27 | Outpatient (CLI) | payer MEDICARE, BC, OTHER, SELFPAY ==
--- NOTE | 2017-05-03 09:31 | NVE_ITS ---
Venous Exam IMPRESSIONS 1. There is no evidence of significant Reflux. 2. No evidence of deep or superficial vein thrombosis involving the right lower extremity 3. Interstitial edema noted in right lower extremity. History: Right lower extremity pain. Swelling of the right lower extremity. Risk factors: Obese. Labs, prior tests, procedures, and surgery: Right knee joint prosthesis (25-Apr-2017). Labs, prior tests, procedures, and surgery: Right knee joint prosthesis (25-Apr-2017). Right lower extremity venous duplex evaluation. Doppler flow study including spectral analysis, color and lechuga scale imaging. Location: Vascular laboratory. Patient status: Outpatient. Tables: Venous flow and imaging: + + + + Location Overall Flow properties + + + + Right common femoral Patent Normal phasicity; spontaneous; normal augmentation; compressible + + + + Right saphenofemoral Patent Compressible junction + + + + Right profunda femoral Patent Compressible + + + + Right femoral Patent Normal phasicity; spontaneous; normal augmentation; compressible + + + + Right greater saphenous Patent Normal phasicity; spontaneous; normal augmentation; compressible + + + + Right popliteal Patent Normal phasicity; spontaneous; normal augmentation; compressible + + + + Right posterior tibial Patent Compressible + + + + Right peroneal Difficult study + + + + Right gastrocnemius Patent Compressible + + + + Right soleal Patent Compressible + + + + (Report amended ) Electronically signed by: Umberto Dixon [id number]
== END ==
PROVIDERS: PCP Internal Medicine; Visit Provider Orthopaedic Surgery
DX: M79.604 Pain in right leg (principal)
CPT/HCPCS: 93971

== ENCOUNTER 2017-06-16 14:00 | Outpatient (RCR) | payer MEDICARE, BC, OTHER, SELFPAY ==
--- NOTE | 2017-05-04 11:22 | HMH.PTOPWND ---
Rehab Outpt Wound Evaluation Rehab OP Wound Evaluation Start: 05/04/17 11:15 Freq: Status: Active Protocol: Document 05/04/17 11:16 SUE (Rec: 05/04/17 11:20 PHORNE [id number]) Electronically Signed By Jeff Luna, PT 05/04/17 11:16 Subjective/History History History Pt presents ~ 10 days S/P right TKA with significant edema more than expected. He reports expected levels of aching pain in the right LE and no numbness or tingling. He had US performed which showed no DVT. He also presents with a small blister at lateral, superior right knee incision. He reports past hx of edema with other medical procedures, especially his lumbar spine surgery. Lymphedema Eval Classification of Lymphedema Secondary Lymphedema Yes Post-Surgical Lymphedema Yes Stemmer's sign Stemmer's Sign yes Stage of Lymphedema Lymphedema stages Stage I (Pitting edema, reduces w/ elevation, no fibrosis) Pain Scale Pain Scale (0-10) 5 Lower Extremity Measurements Right MTP Measurement (cm) 28.8 Heel Measurement (cm) 36.3 10 cm Proximal to Lateral Malleoli 27.8 Measurement (cm) 20 cm Proximal to Lateral Malleoli 35.4 Measurement (cm) 30 cm Proximal to Lateral Malleoli 42.4 Measurement (cm) 40 cm Proximal to Lateral Malleoli 42.6 Measurement (cm) 50 cm Proximal to Lateral Malleoli 50.9 Measurement (cm) 60 cm Proximal to Lateral Malleoli 59.0 Measurement (cm) Manual Lymphatic Drainage Treatment Area MLD Treatment Area Abdomen Right Lower Extremity Wound Problems/Impairments Impairments Problems/Impairmments Palpation Tenderness Impaired Range of Motion Impaired Strength Impaired Gait Pattern Impaired Walking Increased Edema Lymphedema Present Wound Care Needs Subjective C/O Pain Impaired Self Care/Self Management Prognosis Rehab Potential Good Clinical Impression Consistent with Diagnosis
== END 2017-06-16 14:01 | disposition home or self-care (01) ==
LOC: PT 14:00
PROVIDERS: Family Provider Family Medicine; PCP Internal Medicine; Visit Provider Orthopaedic Surgery
DX: Z96.651 Presence of right artificial knee joint (principal); M25.561 Pain in right knee
CPT/HCPCS: 97014; 97016; 97110; 97140; 97162; 97760; G0283

== ENCOUNTER → 2017-06-30 07:55 | Outpatient (CLI) | payer MEDICARE, BC, OTHER, SELFPAY ==
--- NOTE | 2017-06-30 07:59 | XR_ITS ---
XR knee RT 2V HISTORY: Follow-up of the replacement ITS.REASON: RT TKA 10 WK POST OP ORDERING PHYSICIAN: Sheng Oneil MD PATIENT AGE: 72 years COMPARISON: 04/25/2017 FINDINGS: Good alignment status post total knee arthroplasty. No evidence of orthopedic consultation. IMPRESSION: Status post total knee arthroplasty with good alignment
== END ==
PROVIDERS: Visit Provider Orthopaedic Surgery
DX: Z96.651 Presence of right artificial knee joint (principal)
CPT/HCPCS: 73560

== ENCOUNTER → 2018-11-24 08:20 | Outpatient (CLI) | payer MEDICARE, BC, OTHER, SELFPAY ==
--- NOTE | 2018-11-24 08:31 | XR_ITS ---
PROCEDURE: XR KNEE RT 4V CLINICAL INDICATION: FU right knee TKA COMPARISON: KNEELMRT XR knee RT 2V from 04/25/2017 FINDINGS: The femoral prosthesis is in good alignment and apposition to the tibial plateau prosthesis. There is no evidence of loosening of either prosthesis. Postsurgical changes seen along the undersurface of the patella as noted previously. There is no effusion and no other abnormalities noted. IMPRESSION: Satisfactory appearance of total knee prosthesis Dictated by: Dr. Pierre Frazier MD 11/24/2018 09:[address] Pierre Frazier MD in [place] 11/24/2018 09:16
== END ==
PROVIDERS: PCP Internal Medicine; Visit Provider Orthopaedic Surgery
DX: Z09 Encounter for follow-up examination after completed treatment for conditions other than malignant neoplasm (principal); Z96.651 Presence of right artificial knee joint; M25.561 Pain in right knee
CPT/HCPCS: 73564

== ENCOUNTER 2021-12-15 12:00 | Emergency (ER) | payer MEDICARE, OTHER, SELFPAY ==
[2021-12-15 12:01] VITALS: BP 131/61; PULSE 62; RESP 18; TEMP 36.6; O2SAT 99; BMI 40.1
--- NOTE | 2021-12-15 12:04 | HMH.EDUROGM ---
Discharge Plan Disposition Patient Disposition: Home, Self-Care Condition: Good Prescriptions Prescriptions: New oxycodone-acetaminophen [Percocet] 7.5-325 mg tablet 1 tab PO Q6H PRN (Reason: pain) Qty: 14 0RF No Action lisinopril 10 mg tablet 10 mg PO BID gabapentin 300 mg capsule 300 mg PO TID ibuprofen 200 mg capsule 400 mg PO Q4-6H PRN (Reason: PAIN) aspirin [Adult Low Dose Aspirin] 81 mg tablet,delayed release (DR/EC) 81 mg PO DAILY aspirin,buffd-calcium carb-mag 325 MG tablet 325 mg PO DAILY Qty: 14 0RF Referrals Follow up/Referrals: Provider,Referral, MD [Primary Care Provider] - See instructions Activity Restrictions/Add. Instructions Additional Instructions/Restrictions: [facility], return for worse Clinical Impressions Clinical Impression: Intermittent torsion of testicle Instructions Patient Instructions: Testicular Torsion Discharge ED Provider: Mark Bardales Male Urogenital HPI General Chief complaint: Urogenital-Male Stated complaint: Physican referral, LT side testical pain Time Seen by Provider: 12/15/21 12:04 History of Present Illness HPI Narrative: left testicle pain, several weeks, seen by pcp/ER for same Rx abx , today no better Onset (ago): week(s) Duration: constant and intermittent Location: left testicle Severity: moderate Quality: aching Relieving factors: none Exacerbating factors: none Reports denies other symptoms Related Data Home Medications Medication Instructions Recorded Confirmed aspirin 81 mg tablet,delayed 81 mg PO DAILY HEART HEALTH 03/10/17 11/24/18 release (Adult Low Dose Aspirin) ibuprofen 200 mg capsule 400 mg PO Q4-6H PRN PAIN 03/10/17 11/24/18 gabapentin 300 mg capsule 300 mg PO TID Pain 04/07/17 11/24/18 lisinopril 10 mg tablet 10 mg PO BID Hypertension 04/07/17 11/24/18 Previous Rx's Medication Instructions Recorded aspirin,buffered (calcium 325 mg PO DAILY #14 tabs 04/28/17 carbonate-magnesium) 325 mg tablet oxycodone-acetaminophen 7.5 mg-325 1 tab PO Q6H PRN pain #14 tabs 12/15/21 mg tablet (Percocet) Allergies Allergy/AdvReac Type Severity Reaction Status Date / Time No Known Allergies Allergy Verified 11/24/18 09:41 [facility] Social History Smoking Status: Former smoker second hand exposure: No alcohol intake: former current occupational status: retired Travel in the last 8 weeks: None household members: spouse housing: house current occupational exposures/hazards: No caffeine: Yes ROS Obtained: Yes All systems reviewed & no additional complaints except as documented Physical Exam General General appearance: alert and in no apparent distress Respiratory Respiratory exam: Absent respiratory distress, wheezes or stridor Cardiovascular Cardiovascular exam: Present regular rate and normal rhythm; Absent bradycardia Abdominal Exam Abdominal exam: Present soft; Absent distention, tenderness or guarding exam: Present other (ttp left testicle, no red/swell/mass, otherwise nml gu exam) Neurological Exam Neurological exam: Present alert, oriented X3 and CN II-XII intact Skin Skin exam: Present warm, intact and normal color Medical Decision Making Iván Inquiry Pt receiving controlled substance: Yes Iván was queried for this patient: Yes Risks and benefits of using a controlled substance: were discussed with pt by me Vital Signs: 12/15/21 12:01 12/15/21 14:45 Temperature 97.9 F 98.0 F Temperature Source Oral Oral Pulse Rate 60 Pulse Rate [Radial] 62 Respiratory Rate 18 18 Blood Pressure 129/81 Blood Pressure [Right Arm] 131/61 Blood Pressure Mean [Right Arm] 84 Blood Pressure Source Automatic Cuff Blood Pressure Source [Right Arm] Automatic Cuff Blood Pressure Position Sitting Blood Pressure Position [Right Arm] Sitting 02 Sat by Pulse Oximetry 99 Oxygen Deli
--- NOTE | 2021-12-15 12:06 | PC.NURSE ---
ED MD AT BEDSIDE FOR EVALUATION
--- NOTE | 2021-12-15 12:11 | US_ITS ---
FINAL REPORT CLINICAL HISTORY: left testicular pain several weeks FINDINGS: Technique: Ultrasound images of the testicles were obtained. Findings: The right testicle is unremarkable with normal flow. The left testicle is asymmetrically small and has a more lentiform configuration. There is minimal to absent blood flow. There are multi lobular fluid collection surrounding the left testicle. IMPRESSION: Small left testicle with diminished blood flow and surrounding multi lobular fluid collections. Unsure if this is sequela of prior infarct, infection, or trauma. Correlate with medical history. Recommend urologic consultation. Reviewed, Interpreted and Dictated by Kaushal Horton MD Transcribed by Domenico Metzger Authenticated and [facility]
--- NOTE | 2021-12-15 12:27 | PC.NURSE ---
RADIOLOGY NOTIFIED OF U/S
--- NOTE | 2021-12-15 12:37 | PC.NURSE ---
pt to US
--- NOTE | 2021-12-15 12:38 | PC.NURSE ---
PT TO U/S AT THIS TIME PER WC
--- NOTE | 2021-12-15 13:08 | PC.NURSE ---
LEYLA MARTINES DISCUSSING US RESULTS WITH DR. BROWN
--- NOTE | 2021-12-15 13:20 | PC.NURSE ---
ED MD AT BEDSIDE TO DISCUSS POC
[2021-12-15 13:28] LABS: Coronavirus 19, PCR Not Detected (NotDetected); Influenza A, PCR Not Detected (NotDetected); Influenza B, PCR Not Detected (NotDetected)
--- NOTE | 2021-12-15 13:37 | PC.NURSE ---
placed call to [place] for transfer, they are to check bed availability and call back, also advised they may have to send pt to for surgical intervention.
--- NOTE | 2021-12-15 13:48 | PC.NURSE ---
PT TO BR TO PROVIDE URINE
--- NOTE | 2021-12-15 13:56 | PC.NURSE ---
PT MEDICATED PER EMAR, AT BEDSIDE. NO NEEDS VOICED
[2021-12-15 13:58] LABS: Microscopic, Urine URINE MICROSCOPIC (MICROSCOPIC)
[2021-12-15 14:13] LABS: Appearance,Urine CLEAR (Clear); Bilirubin,Urine Negative (Negative); Blood, Urine Negative (Negative); Color,Urine YELLOW (Yellow); Glucose,Urine (UA) Negative (Negative); Ketones,Urine Negative (Negative); Leukocyte Esterase,Urine Negative (Negative); Nitrate,Urine Negative (Negative); Protein,Urine Negative (Negative); Specific Gravity, Urine 1.015 (1.005-1.030); Urobilinogen,Urine 0.2 EU/dl (0.2)
[2021-12-15 14:26] LABS: WBC,Urine Occasional #/hpf (0-3)
--- NOTE | 2021-12-15 14:26 | PC.NURSE ---
[facility] SPEAKING WITH [facility]
--- NOTE | 2021-12-15 14:29 | PC.NURSE ---
Dr Bardales speaking with [facility].
--- NOTE | 2021-12-15 14:31 | PC.NURSE ---
DR. BROWN SPEAKING WITH PT AND ABOUT POC
[2021-12-15 14:45] VITALS: BP 129/81; PULSE 60; RESP 18; TEMP 36.7; O2SAT 99
== END 2021-12-15 14:45 | disposition home or self-care (01) ==
PROVIDERS: Emergency Provider Emergency Medicine
DX: N50.812 Left testicular pain (principal); Z20.822 Contact with and (suspected) exposure to COVID-19; Z79.1 Long term (current) use of non-steroidal anti-inflammatories (NSAID); Z79.82 Long term (current) use of aspirin; Z79.899 Other long term (current) drug therapy; Z87.891 Personal history of nicotine dependence
CPT/HCPCS: 76870; 81001; 99284; C9803; U0003; U0005

== ENCOUNTER 2023-05-10 08:53 | Outpatient (CLI) | payer MEDICARE, SELFPAY ==
--- NOTE | 2023-05-10 08:58 | CT_ITS ---
FINAL REPORT CLINICAL HISTORY: LT HIP PAIN FINDINGS: Axial CT images of the left hip were obtained without contrast. Sagittal and coronal reformatted images were also obtained. 3D reformatted images were also obtained and reviewed. There is no evidence of fracture or dislocation. Severe degenerative changes are noted of the left hip. There are multiple subchondral cysts in the superior femoral head and superior acetabulum. Note is made of moderate degenerative change of the left SI joint. A sclerotic focus is seen in the medial left iliac bone with a nonspecific appearance. The musculature is intact. Note is made of multiple borderline sized left inguinal nodes which are nonspecific but favor reactive. 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 Sclerotic focus in the medial left iliac bone with a nonspecific appearance but favor benign. If indicated follow-up CT in 6 months or bone scan may be helpful. Authenticated and [facility]
== END 2023-05-10 23:59 ==
LOC: RAD 08:53
PROVIDERS: PCP Family Medicine; Visit Provider Nurse Practitioner
DX: M25.552 Pain in left hip (principal)
CPT/HCPCS: 73700

== ENCOUNTER 2023-06-17 08:39 | Outpatient (CLI) | payer MEDICARE, SELFPAY ==
--- NOTE | 2023-06-17 08:51 | XR_ITS ---
FINAL REPORT CLINICAL HISTORY: ARTHRITIS OF HIP,LT HIP PAIN,LYMPHADENITIS COMPARISON: None FINDINGS: Using L1-4, the bone mineral density of the spine is 1.382 g/cm2, corresponding to T-score of 2.6 which is within normal limits. Using the left hip, the bone mineral density of the femoral neck is 0.995 g/cm2, corresponding to a T-score of 0.5 which is within normal limits. Using the right hip, the bone mineral density of the femoral neck is 0.897 g/cm2, corresponding to a T-score of -0.2 which is within normal limits. NOTE: T-score: Standard deviation compared with peak bone mass of young adult mean. *Following the recommendations of the International Society of Bone densitometry, classification of hip BMD is based on the lower of two T-scores; total hip or femoral neck. IMPRESSION: Normal bone mineral density of the lumbar spine and hips. Reviewed, Interpreted and Dictated by Kenneth Hernadez III, MD Transcribed by Mikaela Cantu Authenticated and [facility]
== END 2023-06-17 23:59 | disposition home or self-care (01) ==
LOC: RAD 08:41
PROVIDERS: PCP Family Medicine; Visit Provider Nurse Practitioner
DX: M16.12 Unilateral primary osteoarthritis, left hip (principal); M25.552 Pain in left hip; L04.9 Acute lymphadenitis, unspecified; Z13.820 Encounter for screening for osteoporosis; M85.88 Other specified disorders of bone density and structure, other site
CPT/HCPCS: 77080

== ENCOUNTER 2024-03-05 10:18 | Emergency (ER) | payer MEDICARE, SELFPAY ==
[2024-03-05] VITALS (8 sets, daily range): BP systolic 106–122; BP diastolic 46–67; PULSE 60–61; RESP 10–22; TEMP 36.6; O2SAT 95–99; BMI 35.9
--- NOTE | 2024-03-05 11:15 | ECG_ITS ---
APPROVED REPORT Exam: Resting ECG HR:60 bpm ECG Measurements Heart Rate 60 AXES AL 72 P 138 QRSd 124 QRS -20 QT 410 T 142 QTc 410 Conclusion ELECTRONIC VENTRICULAR PACEMAKER ABNORMAL RHYTHM ECG Electronically signed by : PAULA BRASWELL, 03/05/2024 17:09:19
[2024-03-05 11:16] LABS: Basophils # 0.1 K/mm3 (0-0.2); Basophils % 0.3 % (0.1-2.0); Eosinophils # 0.1 K/mm3 (0.0-0.4); Eosinophils % 0.3 % (0.1-12.0); Hematocrit 42.2 % (42.0-52.0); Lymphocytes # 1.4 K/mm3 (0.7-4.5); Lymphocytes % 7.7 % (10-50); Mean Corpuscular HGB Conc 33.2 g/dL (31.8-35.4); Mean Corpuscular Hemoglobin 29.3 pg (27.0-31.2); Mean Corpuscular Volume 88.3 fl (80-94); Mean Platelet Volume 9.8 fl (7.4-10.4); Monocytes # 2.5 K/mm3 (0.1-1.0); Monocytes % 13.2 % (1.7-9.3); Neutrophils # 14.4 K/mm3 (1.8-7.8); Neutrophils % 77.8 % (37.0-80.0); Platelet Count 330 K/mm3 (142-424); Red Blood Count 4.78 M/mm3 (4.60-6.20); Red Cell Distribution Width 13.3 % (11.5-17.5); White Blood Count 18.6 K/mm3 (4.8-10.8)
--- NOTE | 2024-03-05 11:24 | CT_ITS ---
FINAL REPORT TECHNIQUE: After the administration of intravenous contrast, axial images were obtained through the abdomen and pelvis by computed tomography. This study was performed with technique to keep radiation doses as low as reasonably achievable, (ALARA). Individualized dose reduction techniques using automated exposure control or adjustment of the MA and/or KV according to the patient's size were employed. CLINICAL HISTORY: abd pain/n/v FINDINGS: Abdomen: The lung bases are clear. There is a benign-appearing cyst in the lateral left hepatic lobe measuring 16 mm. Gallbladder is distended. The spleen is unremarkable. There is a left adrenal nodule measuring 17 mm. Right adrenal gland is unremarkable. The pancreas is unremarkable. Benign-appearing left renal cysts are seen measuring up to 3.2 cm. The aorta is normal in caliber. There is no free fluid or adenopathy. There is abnormal mucosal thickening within the ascending colon and hepatic flexure as well as mucosal thickening in the sigmoid colon extending to the rectum favored represent acute, inflammatory or infectious colitis. Pelvis: The left hip prosthesis is present. The appendix is not identified. The urinary bladder is unremarkable. There is no free fluid or adenopathy. IMPRESSION: Acute infectious/inflammatory colitis as above. Reviewed, Interpreted and Dictated by Kaushal Horton MD Transcribed by Bertha Barrera Authenticated and [facility]
[2024-03-05] MEDS: ONDANSETRON 4MG/2ML VIAL 4 MG IV (11:26)
[2024-03-05 11:31] LABS: Coronavirus 19, PCR Not Detected (NotDetected); Influenza A, PCR Not Detected (NotDetected); Influenza B, PCR Not Detected (NotDetected)
[2024-03-05 11:35] LABS: MANUAL DIFFERENTIAL MANUAL DIFFERENTIAL (MANUAL DIFF)
--- NOTE | 2024-03-05 11:43 | ED_ITS ---
Discharge Plan Disposition Patient Disposition: Home, Self-Care Condition: Good Prescriptions Prescriptions: New vancomycin 125 mg capsule 125 mg PO Q6H 10 Days Qty: 40 0RF ondansetron 4 mg tablet,disintegrating 4 mg PO Q8H PRN (Reason: nausea and vomiting) 4 Days Qty: 12 0RF No Action lisinopril 10 mg tablet 10 mg PO BID gabapentin 300 mg capsule 300 mg PO TID ibuprofen 200 mg capsule 400 mg PO Q4-6H PRN (Reason: PAIN) aspirin [Adult Low Dose Aspirin] 81 mg tablet,delayed release (DR/EC) 81 mg PO DAILY aspirin,buffd-calcium carb-mag 325 MG tablet 325 mg PO DAILY Qty: 14 0RF oxycodone-acetaminophen [Percocet] 7.5-325 mg tablet 1 tab PO Q6H PRN (Reason: pain) Qty: 14 0RF Referrals Follow up/Referrals: Seven Zepeda MD [Primary Care Provider] - See instructions Nehemias Jefferson II, MD [Staff Physician] - See instructions Activity Restrictions/Add. Instructions Additional Instructions/Restrictions: You were evaluated in the emergency department today. At this time, your stool panel is pending as we discussed. We will call you with the results and send in any antibiotics as necessary. I also sent in Zofran for you to have as needed for nausea and GI upset. Please follow-up closely with your primary care provider. I also recommend follow-up with GI given the severity of your colitis to make sure that it resolves. Return to the emergency department right away for new or worsening symptoms, such as bloody diarrhea, fever greater than 100.4 ?F, significant worsening in abdominal pain. Clinical Impressions Clinical Impression: Diarrhea, Colitis, C. difficile colitis Instructions Patient Instructions: DI for Diarrhea and Traveler's Diarrhea -- Adult, DI for Nausea -- Adult, DI for Colitis Print Language Print Language: Urdu Discharge ED Provider: Brittany Fontaine General Adult HPI General Chief complaint: Nausea/Vomiting/Diarrhea Stated complaint: vomiting, weakness Time Seen by Provider: 03/05/24 10:43 Mode of Arrival: Family Vehicle Source of Information: Patient and Medical Record Limitations: No Limitations Description of Symptoms (Recalled from ER Triage Doc. by RN): Pt c/o diarrhea, nausea, and abd cramping since 1/15/25. States he saw Dr. Zepeda and was prescribed medications, he is unsure which one. Pt states around 3am he has a spell when he felt really blah and weak and sweaty . He also reports some dizziness. [facility] is [facility], has a hx of Eliquis d/t chronic aflutter that [facility] wants [facility] but I'm hesitant . He did not feel like his heart was racing during these episodes or SOA. History of Present Illness HPI narrative: This patient is a 79-year-old male with a history of hypertension, atrial flutter on Eliquis presenting to the emergency department for evaluation with concern for back door trots since the middle of February. He states that he has had watery diarrhea this nonbloody and nonmelanotic multiple times since then. He notes that he went to Dr. Zepeda's office and was not seen, but told him that he was having the symptoms and was prescribed medication. He is not sure what that medication was. He states that it seemed to help some, but he still keeps getting very sweaty, clammy, and having multiple episodes of bowel movements. He notes that he also has nausea but has not vomited because he is not able to eat anything. No fevers, cough, or other concerns noted. Related Data Home Medications ?Medication ?Instructions ?Recorded ?Confirmed aspirin 81 mg tablet,delayed 81 mg PO DAILY HEART HEALTH 03/10/17 11/24/18 release (Adult Low Dose Aspirin) ibuprofen 200 mg capsule 400 mg PO Q4-6H PRN PAIN 03/10/17 11/24/18 gabapentin 300 mg capsule 300 mg PO TID Pain 04/07/17 11/24/18 lisinopril 10 mg tablet 10 mg PO BID Hypertension 04/07/17 11/24/18 Previous Rx's ?Medication ?Instructions ?Recorded aspirin,buffered (calcium 325 mg PO DAILY #14 tabs 04/28/17 carbonate-magnesium) 325 mg tablet oxycodone-acetaminophen 7.5 mg-325 1 tab PO Q6H PRN pain #14 tabs 12/15/21 mg tablet (Percocet) ondansetron 4 mg disintegrating 4 mg PO Q8H PRN nausea and 03/05/24 tablet vomiting 4 days #12 tabs vancomycin 125 mg capsule 125 mg PO Q6H 10 days #40 caps 03/05/24 Allergies Allergy/AdvReac Type Severity Reaction Status Date / Time No Known Allergies Allergy Verified 11/24/18 09:41 [facility] Disclaimer: The information contained in this section may have been updated after the patient was seen, as this information can be updated by other users. Social History Smoking Status: Never smoker second hand exposure: No alcohol intake: former current occupational status: retired Travel in the last 8 weeks: None household members: spouse housing: house current occupational exposures/hazards: No caffeine: Yes Have you lived/traveled outside [place] in past 30 days?: No Contact w/someone who lives/traveled outside [place] past 30 days?: No Exposure to someone with infectious disease in past 14 days?: No Do you have a fever (greater than 100.4 F or 38 C)?: No Have you tested positive for COVID-19: No Exposed to someone with COVID-19 in past 14 days?: No Do you have a sore throat?: No Do you have a cough?: No Do you have any weakness?: Yes Do you have any diarrhea?: No Are you experiencing any unusual bleeding?: No Do you have any muscle aches/pain?: No Do you have any abdominal pain?: No Are you experiencing loss of taste or smell?: No Other Medical History Have you received the Flu Vaccine for this season: Yes Have you received the Pneumonia Vaccine: Yes ROS Obtained: Yes All systems reviewed & no additional complaints except as documented Physical Exam General General appearance: alert and in no apparent distress Head Head exam: atraumatic and normocephalic Eye Eye exam: Present normal appearance, PERRL and EOMI ENT ENT exam: Present normal exam, normal oropharynx, mucous membranes moist and normal external ear exam Neck Neck exam: Present normal inspection, full ROM and trachea midline; Absent tenderness Chest Chest inspection: Present normal inspection and symmetric chest wall rise; Absent tenderness Respiratory Respiratory exam: Present normal lung sounds bilaterally; Absent respiratory distress, wheezes, stridor or accessory muscle use Cardiovascular Cardiovascular exam: Present regular rate and normal rhythm Abdominal Exam Abdominal exam: Present soft and tenderness (Left lower quadrant); Absent distention, guarding, rebound or rigidity Extremities Exam Extremities exam: Present normal inspection, full ROM and normal capillary refill; Absent tenderness or edema Back Exam Back exam: Present normal inspection and full ROM; Absent tenderness Neurological Exam Neurological exam: Present alert, oriented X3, CN II-XII intact and normal gait; Absent motor sensory deficit Psychiatric Psychiatric exam: Present normal affect and normal mood Skin Skin exam: Present warm and dry Medical Decision Making Medical Records Medical records reviewed: Yes I reviewed the patient's medical records. Screening: Per USPSTF and CDC recommendations, given the prevalence of disease in our region, it is our hospital?s policy to screen for HIV and viral Hepatitis for all patients aged 18 and over and those with ongoing risk factors. Iván Inquiry Pt receiving controlled substance: No Vital Signs: 03/05/24 10:20 03/05/24 11:00 03/05/24 12:30 Temperature 97.9 F Temperature Source Oral Pulse Rate 60 61 Pulse Rate [Right] 61 Respiratory Rate 19 20 12 Blood Pressure 106/53 L 109/46 L Blood Pressure [Right Arm] 122/62 Blood Pressure Mean Blood Pressure Mean [Right Arm] 82 Blood Pressure Source [Right Arm] Automatic Cuff 02 Sat by Pulse Oximetry 99 97 95 Oxygen Delivery Method Room Air Room Air Room Air 03/05/24 13:00 03/05/24 14:00 03/05/24 15:01 Temperature Temperature Source Pulse Rate 60 60 60 Pulse Rate [Right] Respiratory Rate 14 19 10 L Blood Pressure 114/59 L 116/67 111/61 Blood Pressure [Right Arm] Blood Pressure Mean Blood Pressure Mean [Right Arm] Blood Pressure Source [Right Arm] 02 Sat by Pulse Oximetry 97 98 98 Oxygen Delivery Method Room Air Room Air Room Air 03/05/24 15:31 03/05/24 15:58 Temperature 97.9 F Temperature Source Pulse Rate 60 60 Pulse Rate [Right] Respiratory Rate 22 22 Blood Pressure 120/62 120/62 Blood Pressure [Right Arm] Blood Pressure Mean 95 Blood Pressure Mean [Right Arm] Blood Pressure Source [Right Arm] 02 Sat by Pulse Oximetry 98 Oxygen Delivery Method Room Air Lab Data Lab results reviewed: Yes I reviewed the patient's lab results. Lab Results 03/05/24 10:27: Phosphorus 4.5, Magnesium 1.9, TSH 1.72, Thyroxine (T4) 7.9 03/05/24 10:29: WBC 18.6 H, RBC 4.78, Hgb 14.0 L, Hct 42.2, MCV 88.3, MCH 29.3, MCHC 33.2, RDW 13.3, Plt Count 330, MPV 9.8, Neut % (Auto) 77.8, Lymph % (Auto) 7.7 L, Trinity % (Auto) 13.2 H, Eos % (Auto) 0.3, Baso % (Auto) 0.3, Neut # (Auto) 14.4 H, Lymph # (Auto) 1.4, Trinity # (Auto) 2.5 H, Eos # (Auto) 0.1, Baso # (Auto) 0.1, Total Counted 100, Neutrophils % (Manual) 84 H, Lymphocytes % (Manual) 5 L, Monocytes % (Manual) 11 H, Platelet Estimate Normal, RBC Morphology Normal, S odium 131 L, Potassium 4.0, Chloride 98, Carbon Dioxide 25, Anion Gap 12.0, BUN 37 H, Creatinine 1.10, Estimated Creat Clear 89, Estimated GFR 65, Est GFR ( Amer) 78, Glucose 126 H, Calcium 8.8, Total Bilirubin 1.0, AST 39, ALT 27, Alkaline Phosphatase 66, Total Protein 6.8, Albumin 4.0, Globulin 2.8, Albumin/Globulin Ratio 1.4, Lipase 230 03/05/24 11:24: SARS-CoV-2 (PCR) Not detected, Influenza A Untype (PCR) Not detected, Influenza Type B (PCR) Not detected 03/05/24 13:38: Stl Aeromonas (PCR) Not detected, Stl C. cayetanensis PCR Not detected, Stool Rotavirus (PCR) Not detected, Stl Adenov F 40/41 PCR Not detected, Stool Astrovirus (PCR) Not detected, Stool Campylobacter PCR Not detected, Stl C.difficile Tox PCR Detected A, Stool Cryptosporidium PCR Not detected, Stl E.coli Shiga Tox PCR Not detected, Stool E coli O157 PCR Not detected, Stl Enterotoxigenic E PCR Not detected, Stool EPEC (PCR) Not detected, Stool EAEC (PCR) Not detected, Stl E. histolytica PCR Not detected, Stool Giardia Lamblia PCR Not detected, Stool Salmonella PCR Not detected, Stool Sapovirus (PCR) Not detected, Stl P. shigelloides PCR Not detected, Stl Shigella/EIEC PCR Not detected, St Y.enterocolitica PCR Not detected, Stool Vibrio (PCR) Not detected, Stl Vibrio cholerae PCR Not detected, Stl Norovirus GI/GII PCR Not detected 03/05/24 10:29 03/05/24 10:29 Orders (Tests/Meds): ED MEDICATIONS Discontinued Medications Generic Name Dose Route Start Last Admin Trade Name Freq PRN Reason Stop Dose Admin Lactated Ringer's 1,000 mls @ 999 mls/hr 03/05/24 11:48 03/05/24 11:53 Lactated Ringer's 1000 Ml Bag IV 03/05/24 12:48 999 mls/hr .Q1H1M ONE Administration Iopamidol 75 ml 03/05/24 12:04 03/05/24 12:05 Iopamidol-370 (76%);100ml Bottle IV 03/05/24 12:05 75 ml ONCE ONE Administration Ondansetron HCl 4 mg 03/05/24 11:09 03/05/24 11:26 Ondansetron 4mg/2ml Vial IV 03/05/24 11:10 4 mg ONCE ONE Administration Sodium Chloride 10 ml 03/05/24 12:04 03/05/24 12:05 Sodium Chloride 0.9% 10ml Syr (Rad Only) IV 04/04/24 12:03 10 ml NEEDED PRN Administration Maintain IV Site ORDERS Category Date Time Status CT abdomen pelvis w con Stat Cat Scan 03/05/24 11:24 Completed Complete Blood Count Auto Diff Stat Lab 03/05/24 10:29 Completed Comprehensive Metabolic Panel Stat Lab 03/05/24 10:29 Completed Diarrhea 23 Panel, PCR Stat Lab 03/05/24 13:38 Completed HIV Combo Stat Lab 03/05/24 10:27 Received Hepatitis C Ab Qual. W/ RFX Stat Lab 03/05/24 10:27 Received Lipase Stat Lab 03/05/24 10:29 Completed MAG [Magnesium] Stat Lab 03/05/24 10:27 Completed PHOS [Phosphorous] Stat Lab 03/05/24 10:27 Completed Rapid PCR Covid and Flu A/B Stat Lab 03/05/24 11:24 Completed T4 (Thyroxine) Stat Lab 03/05/24 10:27 Completed TSH [Thyroid Stimulating Hormone] Stat Lab 03/05/24 10:27 Completed ECG Data Tracing #1: I reviewed this ECG and interpreted as documented below: Ventricularly paced at a rate of 60 bpm. No acute STEMI ECG initial impression date: 03/05/24 ECG initial impression time: 11:18 Medical Decision Narrative: In summary, this patient is a 79-year-old male presenting to the Emergency Department for evaluation of 2 weeks of diarrhea that is nonbloody. Differential diagnoses considered include but are not limited to infectious colitis, diverticulitis, gastroenteritis, dehydration, MARIE, electrolyte derangements. Ruling out the most morbid conditions drove assessment. It should be noted patient's history includes atrial flutter, hypertension which may or may not be at goal therapy. This complicates all aspects of care by increasing patient's risk for morbidity. On exam, the patient is lying in bed in no acute distress with normal vital signs on cardiac telemetry. Workup included CBC, CMP, lipase, magnesium, phosphorus, TSH, T4, viral swab, diarrhea panel, CT abdomen pelvis with IV contrast. He was given a bolus of IV fluids as well as IV Zofran for symptomatic improvement. EKG obtained is reassuring with a fairly ventricularly paced rhythm.. I independently interpreted CT scan prior to the radiologist read and noted colitis without perforation. Please see their read for final interpretation. Labs were obtained that demonstrated leukocytosis. Chemistry is reassuring with no MARIE. He only has mild hyponatremia, likely in the setting of volume depletion. Patient did provide a stool specimen here which is pending. On reassessment, patient had great improvement after administration of interventions above. He is tolerating oral intake without difficulty and feels fine going home. I did offer admission for continued monitoring given his leukocytosis and diarrhea, however he prefers to go home and see how he does. Stool panel resulted after discharge and was positive for C. difficile, so I called and spoke with the patient directly, notifying him of this and given instructions for supportive management. I also sent in a prescription for oral vancomycin. He was given strict return precautions and was discharged after all questions were answered with plan for close outpatient follow-up with his primary care provider. Critical Care Critical Care Time Critical Care Time: No
[2024-03-05 11:44] LABS: Alanine Aminotransferase 27 U/L (12-78); Albumin/Globulin Ratio 1.4 (1.1-1.8); Alkaline Phosphatase 66 U/L (38-126); Aspartate Amino Transferase 39 U/L (17-59); Blood Urea Nitrogen 37 mg/dl (9-20); Calcium 8.8 mg/dl (8.4-10.2); Carbon Dioxide 25 mmol/L (22.0-30.0); Chloride 98 mmol/L (98-107); Creatinine Clearance Estimated 89 mL/min (50-200); Estimated Glomerular Filt Rate 65 ml/min (>60); GFR (African American) 78 ML/MIN (>60); Globulin 2.8 g/dL (1.3-3.2); Glucose 126 mg/dl (74-100); Sodium 131 mmol/L (136-145); Total Protein,Serum 6.8 g/dl (6.3-8.2)
[2024-03-05 11:51] LABS: Lipase 230 U/L (23-300)
[2024-03-05] MEDS: LACTATED RINGERS 1000ML 1,000 ML 999 ML IV (11:53)
--- NOTE | 2024-03-05 12:04 | PC.NURSE ---
pt is at ct
[2024-03-05] MEDS: SODIUM CHLORIDE 0.9% 10ML SYR (RAD ONLY) 10 ML IV (12:05)
[2024-03-05] MEDS: IOPAMIDOL-370 (76%);100ML BOTTLE 75 ML IV (12:05)
[2024-03-05 12:26] LABS: Lymphocytes % 5 % (10-50); Monocytes % 11 % (2-9); Neutrophils % 84 % (42-76); Platelet Estimate Normal; RBC Morphology Normal; Total Cells Counted 100
[2024-03-05 12:44] LABS: Magnesium 1.9 mg/dl (1.6-2.3); Phosphorous 4.5 mg/dl (2.5-4.5)
[2024-03-05 12:58] LABS: T4 (Thyroxine) 7.9 ug/dl (5.53-11.0)
[2024-03-05 13:12] LABS: Thyroid Stimulating Hormone 1.72 uIU/mL (0.465-4.68)
[2024-03-05 13:45] LABS: Adenovirus F 40/41, stool Not Detected (NotDetected); Astrovirus Not Detected (NotDetected); Campylobacter Not Detected (NotDetected); Cryptosporidium Not Detected (NotDetected); Cyclospora Cayetanesis Not Detected (NotDetected); Entamoeba histolytica Not Detected (NotDetected); Enteroaggregative E coli Not Detected (NotDetected); Enteropathogenic E coli Not Detected (NotDetected); Enterotoxigenic E coli Not Detected (NotDetected); Giardia lamblia Not Detected (NotDetected); Norovirus Not Detected (NotDetected); Plesimonas Shigalloides, PCR Not Detected (NotDetected); Rotavirus A Not Detected (NotDetected); Salmonella, PCR Not Detected (NotDetected); Sapovirus Not Detected (NotDetected); Shiga-like toxin E coli Not Detected (NotDetected); Shigella Enterovasive E coli Not Detected (NotDetected); Vibrio Cholerae Not Detected (NotDetected); Vibrio, PCR Not Detected (NotDetected); Yersinia Entercolitica, PCR Not Detected (NotDetected)
--- NOTE | 2024-03-05 15:25 | PC.NURSE ---
Dr. Fontaine at bedside
[2024-03-05 16:39] LABS: Clostridium Difficile A/B, PCR Detected (NotDetected)
[2024-03-05 17:57] LABS: HIV Combo NEGATIVE (Negative)
[2024-03-05 18:04] LABS: Hepatitis C Ab Qual. W/ RFX NEGATIVE (Negative)
== END 2024-03-05 15:58 | disposition home or self-care (01) ==
PROVIDERS: Emergency Provider Emergency Medicine; PCP Family Medicine
DX: A04.72 Enterocolitis due to Clostridium difficile, not specified as recurrent (principal); K52.9 Noninfective gastroenteritis and colitis, unspecified; R10.9 Unspecified abdominal pain; R11.0 Nausea; R61 Generalized hyperhidrosis; R63.8 Other symptoms and signs concerning food and fluid intake
CPT/HCPCS: 74177; 80053; 83690; 83735; 84100; 84436; 84443; 85007; 85025; 85027; 86803; 87389; 87507; 87636; 93005; 96361; 96374; 99285; J2405; J7120; Q9967